=== PATIENT | female | born 1985 | race African-American/Black ===

== ENCOUNTER 2018-06-20 07:42 | Emergency (ER) | payer SELFPAY ==
[~2018-06-20] VITALS: Ht 157.5 cm; Wt 72.6 kg
[2018-06-20 08:02] VITALS: BP 116/84
[2018-06-20] MEDS ORDERED: cefTRIAXone SOD 1,000 MG VL IM ONE (08:45)
[2018-06-20] MEDS ORDERED: KETOROLAC TROMETH 60MG/2ML VIAL IM ONE (08:45)
== END 2018-06-20 09:07 | disposition home or self-care (01) ==
LOC: ER 07:42
DX: N39.0 Urinary tract infection, site not specified (principal); M79.10 Myalgia, unspecified site
CPT/HCPCS: 81002; 81025; 96372; 99283; J0696; J1885

== ENCOUNTER 2021-02-20 12:50 | Emergency (ER) | payer MEDICAID ==
[~2021-02-20] VITALS: Ht 157.5 cm; Wt 62.6 kg
[2021-02-20 13:20] VITALS: BP 130/79
[2021-02-20 13:35] LABS: Basophils # (auto) 0 10 ^3/uL (0-0.2); Basophils % (auto) 0.5 % (0.0-2.0); Eosinophils # (auto) 0.1 10 ^3/uL (0-0.8); Eosinophils % (auto) 0.7 % (0.0-7.0); Hematocrit 30.9 % (36.0-46.0); Hemoglobin 10.8 g/dL (12.2-16.2); Lymphocytes # (auto) 1.7 10 ^3/uL (0.4-5.4); Lymphocytes % (auto) 17.8 % (10.0-50.0); Mean Corpuscular Hgb Conc. 34.9 g/dL (32.0-36.0); Mean Corpuscular Volume 94.5 fL (80.0-100.0); Monocytes # (auto) 0.8 10 ^3/uL (0-1.3); Monocytes % (auto) 8.2 % (0.0-12.0); Neutrophils # (auto) 6.8 10 ^3/uL (1.6-8.6); Neutrophils % (auto) 72.8 % (37.0-80.0); Red Blood Cells 3.27 10^6/uL (4.0-5.20); Red Cell Distribution Width 13.5 % (11.8-14.3); White Blood Cell 9.3 10^3/uL (4.4-10.8)
[2021-02-20 13:50] LABS: INR 0.96 (0.9-1.15); Partial Thromboplastin Time 27.2 sec (23.6-33.0)
[2021-02-20 14:01] LABS: Albumin 3.1 g/dL (3.4-5.0); Calcium 8.9 mg/dL (8.5-10.1); Potassium 3.6 mmol/L (3.5-5.1)
[2021-02-20 14:06] LABS: BUN/Creatinine Ratio 10.5; Bilirubin, Total 0.3 mg/dL (0.2-1.0)
== END 2021-02-20 16:08 | disposition home or self-care (01) ==
LOC: ER 12:50
DX: O04.80 (Induced) termination of pregnancy with unspecified complications (principal); N93.8 Other specified abnormal uterine and vaginal bleeding; R10.30 Lower abdominal pain, unspecified; F17.210 Nicotine dependence, cigarettes, uncomplicated; F12.10 Cannabis abuse, uncomplicated
CPT/HCPCS: 36415; 76830; 76856; 80053; 84702; 85025; 85610; 85730